=== PATIENT | male | born 1960 | race Caucasian/White ===

== ENCOUNTER 2020-08-01 15:34 | Observation (INO) ==
[2020-08-01 15:38] VITALS: BMI 32.8
[2020-08-01] MEDS ORDERED: ZOFRAN INJ 4 MG VIAL IVP ONE (16:25)
[2020-08-01] MEDS ORDERED: NS 1000 ML 1,000 ML IV ONE (16:25)
[2020-08-01] MEDS ORDERED: NS 1000 ML 1,000 ML ONE ×2 (16:30→19:46)
[2020-08-01] MEDS ORDERED: ZOFRAN INJ 4 MG VIAL ONE ×2 (16:30→16:31)
--- NOTE | 2020-08-01 16:30 | DR.N/VMALE ---
HPI Time Seen Time Seen by Provider: 08/01/20 16:25 Primary Care Physician Primary Care Physician: HEATHER Complaints Chief Complaint Doctors Comments: n/v since yesterday Chief Complaint:: PT C/O VOMITING, FEVER, HEADACHE, COUGH, AND FATIGUE/ WEAKNESS. PT STATES HE REC'D THE COVID VACCINE SATURDAY AFTERNOON AND HE BEGAN SYMPTOMS SATURDAY NIGHT. COVID-19 Coronavirus risk:travel/contact w/high risk person: No Has patient experienced Coronavirus symptoms: Yes Coronavirus symptoms experienced: Fever and Coughing Reviewed Nurses Notes Reviewed: Yes Source History Provided: Patient Mode of Arrival Mode of Arrival: Ambulatory Timing Onset of Chief Complaint: 07/30/20 PMH PMH Past Medical History: No Past Surgical History: Yes Past Surgical History Comment: RHINOPLASTY Family History History of Family Medical Conditions: No Social History Does any household member use tobacco: No Alcohol Use: None Do you use any recreational Drugs:: No Lives With: Family Lives Where: Home Travel Risk Coronavirus risk:travel/contact w/high risk person: No Has patient experienced Coronavirus symptoms: Yes Coronavirus symptoms experienced: Fever and Coughing Infectious screening In the last 2 months have you had wt loss of >10#?: NO Have you had fever, night sweats or hemotysis?: No Have you traveled outside the country in the last 6 months?: No Isolation: Droplet ROS Review of Systems Constitutional: See HPI Eyes: No Symptoms Reported ENTM: No Symptoms Reported Respiratoy: No Symptoms Reported Cardiovascular: No Symptoms Reported Gastrointestinal/Abdominal: No Symptoms Reported Genitourinary: No Symptoms Reported Neurological: No Symptoms Reported Musculoskeletal: No Symptoms Reported Integumentary: No Symptoms Reported PE Vital Signs Vitals: Temperature 99.5 F Pulse Rate 95 Respiratory Rate 20 Blood Pressure 135/65 O2 Sat by Pulse Oximetry 92 General General Appearance: Alert and In No Apparent Distress Head Head Exam: Normal Inspection, Atraumatic and Normocephalic Eyes Eye exam: Normal Appearance, PERRL and EOMI ENT ENT Exam: Normal Exam and Normal Oropharynx Neck Neck Exam: Normal Inspection and Full ROM Respiratory Respiratory Exam: Normal Lung Sounds Bilat; negative Accessory Muscle Use Cardiovascular Cardiovascular Exam: Regular Rate and Normal Heart Sounds Abdominal Exam Abdominal Exam: Normal Inspection and Normal Bowel Sounds Extremities Extremities Exam: Normal Inspection and Full ROM Back Back Exam: Normal Inspection, Full ROM and Tenderness Neurologic Neurological Exam: Alert, Oriented X3 and Reflexes Normal Skin Skin Exam: Warm, Dry and Intact COURSE Reevaluation 1st: Improved ROR Labs Reviewed Laboratory Results Reviewed?: Yes Result Diagrams: 08/01/20 16:36 08/01/20 16:36 Laboratory: WBC 5.0 X10^3/uL (3.6-10.0) 08/01/20 16:36 RBC 4.94 X10^6/uL (4.7-6.0) 08/01/20 16:36 Hgb 15.3 g/dL (13.5-18.0) 08/01/20 16:36 Hct 44.1 % (42.0-54.0) 08/01/20 16:36 MCV 89.3 fL (80.0-100.0) 08/01/20 16:36 MCH 31.0 pg (27.0-34.0) 08/01/20 16:36 MCHC 34.7 g/dL (33.0-35.0) 08/01/20 16:36 RDW 12.8 % (11.6-16.5) 08/01/20 16:36 Plt Count 148 X10^3/uL (150.0-450.0) L 08/01/20 16:36 MPV 8.1 fL (7.4-11.0) 08/01/20 16:36 Neut % (Auto) 78.3 % (42.0-75.0) H 08/01/20 16:36 Lymph % (Auto) 12.9 % (21.0-51.0) L 08/01/20 16:36 [place] % (Auto) 8.4 % (0.0-13.0) 08/01/20 16:36 Eos % (Auto) 0.1 % (0.9-2.9) L 08/01/20 16:36 Baso % (Auto) 0.3 % (0.2-1.0) 08/01/20 16:36 Neut # (Auto) 3.9 x10^3/uL (2.2-4.8) 08/01/20 16:36 Lymph # (Auto) 0.6 X10^3/uL (1.3-2.9) L 08/01/20 16:36 [place] # (Auto) 0.4 x10^3/uL (0.3-0.8) 08/01/20 16:36 Eos # (Auto) 0.0 x10^3/uL (0.0-0.2) 08/01/20 16:36 Baso # (Auto) 0.0 X10^3/uL (0.0-0.1) 08/01/20 16:36 Absolute Nucleated RBC 0.1 /100WBC 08/01/20 16:36 Sodium 139 mmol/L (136-145) 08/01/20 16:36 Corrected Sodium 139 mmol/L (136-145) 08/01/20 16:36 Potassium 4.3 mmol/L (3.5-5.1) 08/01/20 16:36 Chloride 102 mmol/L (98-107) 08/01/20 16:36 Carbon Dioxide 28.0 mmol/L (21-32) 08/01/20 16:36 BUN 24 mg/dL (7-18) H 08/01/20 16:36 Creatinine 1.05 mg/dL (0.70-1.30) 08/01/20 16:36 Est GFR (MDRD) Af Amer > 60 (>60) 08/01/20 16:36 Est GFR (MDRD) Non-Af > 60 (>60) 08/01/20 16:36 Glucose 112 mg/dL (65-99) H 08/01/20 16:36 Calcium 9.6 mg/dL (8.5-10.1) 08/01/20 16:36 Corrected Calcium TNP 08/01/20 16:36 Total Bilirubin 0.50 mg/dL (0.2-1.0) 08/01/20 16:36 AST 35 Units/L (15-37) 08/01/20 16:36 ALT 47 Units/L (12-78) 08/01/20 16:36 Alkaline Phosphatase 44 Units/L (46-116) L 08/01/20 16:36 Total Protein 7.9 g/dL (6.4-8.2) 08/01/20 16:36 Albumin 3.8 g/dL (3.4-5.0) 08/01/20 16:36 Globulin 4.1 g/dL (2.5-4.5) 08/01/20 16:36 Albumin/Globulin Ratio 0.9 Ratio (1.1-2.1) L 08/01/20 16:36 Lipase 600 Units/L (73-393) H 08/01/20 16:36 lipase 600 XRAY X-ray Results: ct abd neg for acute Opioid Opioid Risk Tool Age (Adrian box if 16-45): No History of Preadolescent Sexual Abuse: No Total: 0 Total Score Risk Category: Low Risk Copyright: Chuy RAMIREZ predicting aberrant behaviors Diagnosis Discharge Problem: Nausea and vomiting in adult patient, Acute pancreatitis
[2020-08-01 16:44] LABS: BASOPHILS % (AUTO) 0.3 % (0.2-1.0); EOSINOPHILS % (AUTO) 0.1 % (0.9-2.9); HEMATOCRIT 44.1 % (42.0-54.0); HEMOGLOBIN 15.3 g/dL (13.5-18.0); LYMPHOCYTES # (AUTO) 0.6 X10^3/uL (1.3-2.9); LYMPHOCYTES % (AUTO) 12.9 % (21.0-51.0); MEAN CORPUSCULAR HGB CONC 34.7 g/dL (33.0-35.0); MEAN CORPUSCULAR VOLUME 89.3 fL (80.0-100.0); MEAN PLATELET VOLUME 8.1 fL (7.4-11.0); MONOCYTES # (AUTO) 0.4 x10^3/uL (0.3-0.8); MONOCYTES % (AUTO) 8.4 % (0.0-13.0); NEUTROPHILS # (AUTO) 3.9 x10^3/uL (2.2-4.8); NEUTROPHILS % (AUTO) 78.3 % (42.0-75.0); PLATELET COUNT 148 X10^3/uL (150.0-450.0); RED BLOOD COUNT 4.94 X10^6/uL (4.7-6.0); RED CELL DISTRIBUTION WIDTH 12.8 % (11.6-16.5)
[2020-08-01 16:55] LABS: ALANINE AMINOTRANSFERASE 47 Units/L (12-78); ALBUMIN 3.8 g/dL (3.4-5.0); ALKALINE PHOSPHATASE 44 Units/L (46-116); ASPARTATE AMINO TRANSFERASE 35 Units/L (15-37); BLOOD UREA NITROGEN 24 mg/dL (7-18); CALCIUM 9.6 mg/dL (8.5-10.1); CHLORIDE 102 mmol/L (98-107); COR NA(FOR HYPERGLY) 139 mmol/L (136-145); CREATININE 1.05 mg/dL (0.70-1.30); LIPASE 600 Units/L (73-393); SODIUM 139 mmol/L (136-145); TOTAL PROTEIN 7.9 g/dL (6.4-8.2); eGFR NON BLACK RACES > 60 (>60)
--- NOTE | 2020-08-01 17:33 | RAD ---
ACUTE ABDOMEN SERIESHISTORY:C/O VOMITING, FEVER, HEADACHE, COUGH, AND FATIGUE/ WEAKNESS. PT STATES HE REC'D THE COVID VACCINE Saturday AND HE BEGAN SYMPTOMS Saturdaytudy: Frontal view of the chest, flat and upright views of the abdomenComparison:NoneFindings:Cardiomediastinal silhouette is normal in size .No focal consolidations, pleural effusions or pneumothorax.Flat and upright views of the abdomen demonstrates a normal bowel gas pattern.No free air..No abnormal calcifications or abnormal soft tissue shadows. No acute bony abnormalities.IMPRESSION:1. No acute cardiopulmonary disease.2. No evidence for acute abdominal pathology.Electronically signed by: VANIA LI (August 01, 2020 17:31:49)
[2020-08-01] MEDS ORDERED: LEVSIN/MAALOX/LIDOC VISC PO ONE (19:10)
[2020-08-01] MEDS ORDERED: LEVSIN/MAALOX/LIDOC VISC ONE (19:11)
--- NOTE | 2020-08-01 19:11 | CT ---
EXAM: CT ABDOMEN AND PELVIS WITHOUT INTRAVENOUS CONTRASTHISTORY: Pain. Vomiting. Fever. Headache. Cough. Fatigue. Weakness. Status post Kolephrin vaccine Saturday afternoon. Symptoms began Saturday night.TECHNIQUE: Spiral axial CT images are obtained through the abdomen and pelvis without the administration of intravenous contrast. Additional coronal and sagittal reformatted images are reconstructed.DOSIMETRY: Total DLP 921.9 mGycm; CTDI 17.8 mGyCOMPARISON: None available.FINDINGS:GASTROINTESTINAL TRACT: There is a small collapsed hiatal hernia. There is no evidence for bowel herniation, bowel obstruction, colitis or diverticulitis. A normal-appearing appendix is seen.GENITOURINARY SYSTEM: There are multiple tiny bilateral nonobstructing renal calculi; largest in the right lower pole kidney measuring 5.2 mm. The kidneys are unremarkable. There is no ureteral calculus or stigmata of obstructive uropathy. A urachal remnant is noted. The urinary bladder, seminal vesicles, prostate gland appear otherwise grossly unremarkable for a non-dedicated exam.CT ABDOMEN: The liver, spleen, pancreas, adrenal glands, gallbladder, aorta, and inferior vena cava are within normal limits for a noncontrast CT scan. There is no intra-abdominal or retroperitoneal lymphadenopathy, free fluid, or free air seen. Approximately 3.8 cm AP by 2.8 cm CC by 4.4 cm transverse umbilical hernia containing uncomplicated omental fat.CT PELVIS: Multilevel DDD is seen in the distal thoracic and upper lumbar spine. The visualized bony structures are otherwise within normal limits. No pelvic sidewall or inguinal lymphadenopathy is seen. No inguinal herniation is noted. No free fluid or free air is seen.LUNG BASES: The lung bases are clear.IMPRESSION:1. No gross acute abnormality or significant interval change seen.2. Multiple tiny bilateral nonobstructing renal calculi; largest in the right lower pole kidney measuring 5.2 mm; no evidence for ureteral stone or obstructive uropathy seen bilaterally.3. No evidence for acute appendicitis, bowel herniation/obstruction, colitis or diverticulitis seen.4. Small collapsed hiatal hernia.5. Approximately 3.8 cm AP by 2.8 cm CC by 4.4 cm transverse umbilical hernia containing uncomplicated omental fat.6. No free fluid, free air, mass lesions, or lymphadenopathy seen.Electronically signed by: Brenda Juarez (August 01, 2020 19:08:53)
[2020-08-01] MEDS ORDERED: MORPHINE SULFATE INJ 4 MG IVP PRN (19:37)
[2020-08-01] MEDS: NS 1000 ML 1,000 ML IV SCH (19:49)
[2020-08-01] MEDS ORDERED: ZOFRAN INJ 4 MG VIAL IVP PRN (22:26)
[2020-08-01] MEDS ORDERED: PEPCID 20 MG IV PREMIX* 20 MG/50 ML BAG IV ONE (22:38)
[2020-08-01] MEDS: PEPCID 20 MG IV PREMIX* 20 MG/50 ML BAG IV SCH (22:44)
[2020-08-02] MEDS: NS 1000 ML 1,000 ML IV SCH ×2 (04:51→11:44)
[2020-08-02 06:02] LABS: BASOPHILS % (AUTO) 0.4 % (0.2-1.0); EOSINOPHILS # (AUTO) 0.1 x10^3/uL (0.0-0.2); EOSINOPHILS % (AUTO) 1.1 % (0.9-2.9); HEMATOCRIT 38.6 % (42.0-54.0); HEMOGLOBIN 13.3 g/dL (13.5-18.0); LYMPHOCYTES # (AUTO) 1.5 X10^3/uL (1.3-2.9); LYMPHOCYTES % (AUTO) 26.9 % (21.0-51.0); MEAN CORPUSCULAR HEMOGLOBIN 30.7 pg (27.0-34.0); MEAN CORPUSCULAR HGB CONC 34.4 g/dL (33.0-35.0); MEAN CORPUSCULAR VOLUME 89.3 fL (80.0-100.0); MEAN PLATELET VOLUME 8.2 fL (7.4-11.0); MONOCYTES # (AUTO) 0.7 x10^3/uL (0.3-0.8); MONOCYTES % (AUTO) 12.7 % (0.0-13.0); NEUTROPHILS # (AUTO) 3.4 x10^3/uL (2.2-4.8); NEUTROPHILS % (AUTO) 58.9 % (42.0-75.0); PLATELET COUNT 124 X10^3/uL (150.0-450.0); RED BLOOD COUNT 4.32 X10^6/uL (4.7-6.0); WHITE BLOOD COUNT 5.7 X10^3/uL (3.6-10.0)
[2020-08-02 06:24] LABS: ALANINE AMINOTRANSFERASE 38 Units/L (12-78); ALBUMIN 2.9 g/dL (3.4-5.0); ALKALINE PHOSPHATASE 32 Units/L (46-116); AMYLASE 46 Units/L (25-115); ASPARTATE AMINO TRANSFERASE 29 Units/L (15-37); BLOOD UREA NITROGEN 23 mg/dL (7-18); CALCIUM 7.9 mg/dL (8.5-10.1); CHLORIDE 107 mmol/L (98-107); COR CA(FOR HYPOALB) 8.8 mg/dL (8.5-10.1); CREATININE 0.94 mg/dL (0.70-1.30); LIPASE 175 Units/L (73-393); SODIUM 141 mmol/L (136-145); TOTAL PROTEIN 6.2 g/dL (6.4-8.2); eGFR NON BLACK RACES > 60 (>60)
[2020-08-02] MEDS: PEPCID 20 MG IV PREMIX* 20 MG/50 ML BAG IV SCH (08:38)
--- NOTE | 2020-08-02 09:22 | DR.H&P ---
H&P - History & Physical for Day of: H&P Date: 08/01/20 - Chief Complaint Chief Complaint: ABDOMINAL TENDERNESS, NAUSEA, VOMITING, FEVER, HEADACHE, COUGH, FATIGUE - History of Present Illness History of Present Illness: IS A 60 YEAR OLD PATIENT OF OURS. HE PRESENTED TO THE ER WITH COMPLAINTS OF NAUSEA, VOMITING, FEVER, HEADACHE, COUGH, FATIGUE AND WEAKNESS. HE REPORTS THAT HIS SYMPTOMS STARTED SATURDAY EVENING, AFTER RECEIVING THE COVID VACCINE. HE REPORTS THAT HIS SYMPTOMS HAVE WORSENED SINCE SATURDAY. EXAMINATION REVEALED INCREASED BOWEL SOUNDS AND DIFFUSE ABDOMINAL TENDERNESS. ON ARRIVAL TO THE ER, VITALS WERE 99.5-95-20-92%-135/65. LABS WERE OBTAINED. ABNORMAL LAB VALUES INCLUDE THE FOLLOWING: PLT COUNT 148, BUN 24, GLUCOSE 112, ALK PHOS 44, LIPASE 600. COVID-19 NEGATIVE. AN ABDOMEN XRAY WAS OBTAINED AND REVEALED: 1. No acute cardiopulmonary disease. 2. No evidence for acute abdominal pathology. AN ABDOMEN/PELVIS CT WITHOUT CONTRAST WAS OBTAINED AND REVEALED: 1. No gross acute abnormality or significant interval change seen. 2. Multiple tiny bilateral nonobstructing renal calculi; largest in the right lower pole kidney measuring 5.2 mm; no evidence for ureteral stone or obstructive uropathy seen bilaterally. 3. No evidence for acute appendicitis, bowel herniation/obstruction, colitis or diverticulitis seen. 4. Small collapsed hiatal hernia. 5. Approximately 3.8 cm AP by 2.8 cm CC by 4.4 cm transverse u mbilical hernia containing uncomplicated omental fat. 6. No free fluid, free air, mass lesions, or lymphadenopathy seen. IN THE ER, HE WAS GIVEN A NORMAL SALINE BOLUS, ZOFRAN 8MG IV X 1 DOSE, GI COCKTAIL 30ML PO X 1 DOSE. HE WAS ADMITTED TO THE HOSPITAL FOR FURTHER EVALUATION AND TREATMENT OF ACUTE PANCREATITIS, ABDOMINAL PAIN, NAUSEA/VOMITING. HE WAS STARTED ON NORMAL SALINE AT 125 ML/HR, PEPCID 20MG IV DAILY, MORPHINE 4MG IV Q4H PRN PAIN, AND ZOFRAN 4MG IV Q8H PRN NAUSEA. HE WILL BE NPO. OTHERWISE, WE PLAN TO FOLLOW UP WITH AM LABS AND CONTINUE TO MONITOR. TIME SPENT ON CLINICAL ASSESSMENT, REVIEWING LABS AND IMAGING, DECISION MAKING, AND DOCUMENTATION GREATER THAN 75 MINUTES. - Past Surgical History Surgical History: Other Additional Surgical History: RHINOPLASTY - Family History Family Medical History: Cancer - Social History Does any household member use tobacco: No Alcohol Use: None Drug Use: None - Medications Home Medications: No Known Drug Allergies Allergy (Verified 08/01/20 15:35) CONTINUE taking the following medications NK 08/02/20 [History] - Review of Systems Constitutional: Fever, Chills, Weakness, Malaise Eyes: No Symptoms Reported ENT: No Symptoms Reported Respiratory: Cough Cardiovascular: No Symptoms Reported Gastrointestinal: See HPI, Nausea, Vomiting, Abdominal Pain Genitourinary: No Symptoms Reported Musculoskeletal: No Symptoms Reported Skin: No Symptoms Reported Neurological: Weakness - Physical Exam Vital Signs: Temperature 97.6 F Pulse Rate [Left] 58 Pulse Rate 95 Respiratory Rate 18 Blood Pressure [Left Arm] 126/70 Blood Pressure 135/65 O2 Sat by Pulse Oximetry 97 Oriented: Normal Eyes: Normal Ear: Normal Nose: Normal Throat: Normal Respiratory: Diminished Throughout Cardiovascular: Normal : Normal Auscultation: Bowel Sounds: Increased Palpation: Normal Tenderness: Diffuse, Mild Skin: Normal Musculoskeletal: Normal Psychiatric: Normal Mood Description: Calm Affect: Normal Speech Pattern: Clear - Assessment/Plan (1) Acute pancreatitis Qualifiers: Pancreatitis type: unspecified pancreatitis type Acute pancreatitis complication: no infection or necrosis Qualified Code(s): K85.90 - Acute pancreatitis without necrosis or infection, unspecified Status: Acute Plan: ADMIT, NPO, NORMAL SALINE AT 125 ML/HR, PEPCID 20MG IV DAILY, MORPHINE 4MG IV Q4H PRN PAIN, AND ZOFRAN 4MG IV Q8H PRN NAUSEA. (2) Abdominal pain Qualifiers: Abdominal location: generalized Qualified Code(s): R10.84 - Generalized abdominal pain Status: Acute (3) Nausea and vomiting in adult patient Status: Acute - Allergies Allergies/Adverse Reactions: Allergies Allergy/AdvReac Type Severity Reaction Status Date / Time No Known Drug Allergies Allergy Verified 08/01/20 15:35
[2020-08-02] MEDS ORDERED: LOVENOX INJ 40 MG SYR SC SCH (10:00)
[2020-08-02] MEDS: SOLU-Medrol 40 MG VIAL IVP SCH ×2 (10:30→16:52)
[2020-08-02 16:53] VITALS: BP 126/58
== END 2020-08-02 16:50 | disposition home or self-care (01) ==
LOC: MED/SURG 15:34 → ER 15:34 → MED/SURG 22:14
PROVIDERS: ADMIT Internal Medicine; ATTEND Internal Medicine
DX: K44.9 Diaphragmatic hernia without obstruction or gangrene; K85.80 Other acute pancreatitis without necrosis or infection; Z20.822 Contact with and (suspected) exposure to COVID-19; R53.83 Other fatigue; R11.2 Nausea with vomiting, unspecified; R10.84 Generalized abdominal pain; R51.9 Headache, unspecified

== ENCOUNTER 2023-09-17 01:18 | Observation (INO) ==
--- NOTE | 2023-09-17 02:21 | DR.ABDMALE ---
HPI Time seen Time Seen by Provider: 09/17/23 02:20 PCP Primary Care Physician: Dr. Marshall HPI comment HPI Comment: A 60 y/o male presenting with mayra-umbilical pain onset about 1900 hrs. The pain started after he sneezed. He states that it has been constant, he can't describe it but it hurts and he rated this as a 10/10. There is no nausea or vomiting. The pain onset is not related to a meal (he was discharged from the hospital 0n 08/02/2020 after a 23 hrs. observation stay with pancreatitis. Complaint Chief Complaint:: C/O Abd. Pain around Umbilus. Pt has a Hx of an Umbilical Hernia Self Treatment fo Chief Complaint: Came to ED because pain comes and goes at times COVID-19 Coronavirus risk:travel/contact w/high risk person: No Has patient experienced Coronavirus symptoms: No Reviewed Nurses Notes Review: Yes Mode of arrival Mode of Arrival: Ambulatory Timing Onset of Chief Complaint: 09/15/23 Location Location: Periumbilical Severity Severity: Severe PMH PMH Past Medical History: Yes Past Medical History Comment: DVT Past Surgical History: Yes Surgical History: Other Past Surgical History Comment: Nose Surgery Family History History of Family Medical Conditions: Yes Family Medical History: Cancer Social History Does patient currently use any type of tobacco product: No Have you used tobacco products in the last 12 months: No Type of Tobacco Use: None Does any household member use tobacco: No Alcohol Use: None Do you use any recreational Drugs:: No Lives With: Alone Lives Where: Home Infectious screening Have you traveled outside the country in the last 6 months?: No Isolation: Standard PE Vital Signs Vital Signs: Temp Pulse Resp BP Pulse Ox 09/17/23 01:40 98.0 F 73 19 120/66 95 ROR Labs Reviewed 09/18/23 05:20 09/18/23 05:20 Laboratory: WBC 10.7 X10^3/uL (3.6-10.0) H 09/17/23 02:35 RBC 5.65 X10^6/uL (4.7-6.0) 09/17/23 02:35 Hgb 16.8 g/dL (13.5-18.0) 09/17/23 02:35 Hct 51.0 % (42.0-54.0) 09/17/23 02:35 MCV 90.4 fL (80.0-100.0) 09/17/23 02:35 MCH 29.8 pg (27.0-34.0) 09/17/23 02:35 MCHC 33.0 g/dL (33.0-35.0) 09/17/23 02:35 RDW 13.5 % (11.6-16.5) 09/17/23 02:35 Plt Count 198 X10^3/uL (150.0-450.0) 09/17/23 02:35 MPV 8.5 fL (7.4-11.0) 09/17/23 02:35 Neut % (Auto) 80.6 % (42.0-75.0) H 09/17/23 02:35 Lymph % (Auto) 12.0 % (21.0-51.0) L 09/17/23 02:35 [place] % (Auto) 6.5 % (0.0-13.0) 09/17/23 02:35 Eos % (Auto) 0.3 % (0.9-2.9) L 09/17/23 02:35 Baso % (Auto) 0.6 % (0.2-1.0) 09/17/23 02:35 Neut # (Auto) 8.6 x10^3/uL (2.2-4.8) H 09/17/23 02:35 Lymph # (Auto) 1.3 X10^3/uL (1.3-2.9) 09/17/23 02:35 [place] # (Auto) 0.7 x10^3/uL (0.3-0.8) 09/17/23 02:35 Eos # (Auto) 0.0 x10^3/uL (0.0-0.2) 09/17/23 02:35 Baso # (Auto) 0.1 X10^3/uL (0.0-0.1) 09/17/23 02:35 Absolute Nucleated RBC 0.1 /100WBC 09/17/23 02:35 Sodium 142 mmol/L (136-145) 09/17/23 02:35 Corrected Sodium TNP 09/17/23 02:35 Potassium 4.2 mmol/L (3.5-5.1) 09/17/23 02:35 Chloride 100 mmol/L (98-107) 09/17/23 02:35 Carbon Dioxide 29.4 mmol/L (21-32) 09/17/23 02:35 BUN 12 mg/dL (7-18) 09/17/23 02:35 Creatinine 0.97 mg/dL (0.70-1.30) 09/17/23 02:35 Est GFR (MDRD) Af Amer > 60 (>60) 09/17/23 02:35 Est GFR (MDRD) Non-Af > 60 (>60) 09/17/23 02:35 Glucose 104 mg/dL (65-99) H 09/17/23 02:35 Calcium 9.8 mg/dL (8.5-10.1) 09/17/23 02:35 Corrected Calcium TNP 09/17/23 02:35 Total Bilirubin 0.70 mg/dL (0.2-1.0) 09/17/23 02:35 AST 27 Units/L (15-37) 09/17/23 02:35 ALT 22 Units/L (12-78) 09/17/23 02:35 Alkaline Phosphatase 49 Units/L (46-116) 09/17/23 02:35 Total Protein 7.8 g/dL (6.4-8.2) 09/17/23 02:35 Albumin 4.0 g/dL (3.4-5.0) 09/17/23 02:35 Globulin 3.8 g/dL (2.5-4.5) 09/17/23 02:35 Albumin/Globulin Ratio 1.1 Ratio (1.1-2.1) 09/17/23 02:35 Amylase 61 Units/L (25-115) 09/17/23 02:35 Lipase 49 Units/L (16-77) 09/17/23 02:35 Specimen Type Clean catch urine 09/17/23 05:52 Urine Color Yellow (YELLOW) 09/17/23 05:52 Urine Appearance Clear (CLEAR) 09/17/23 05:52 Urine pH 6.0 (5.0 - 8.0) 09/17/23 05:52 Ur Specific [place] 1.015 (1.000-1.030) 09/17/23 05:52 Urine Protein Negative (NEGATIVE) 09/17/23 05:52 Urine Glucose (UA) Negative (NEGATIVE) 09/17/23 05:52 Urine Ketones 4+ (NEGATIVE) 09/17/23 05:52 Urine Blood 3+ (NEGATIVE) 09/17/23 05:52 Urine Nitrite Negative (NEGATIVE) 09/17/23 05:52 Urine Bilirubin Negative (NEGATIVE) 09/17/23 05:52 Urine Urobilinogen Normal (NORMAL) 09/17/23 05:52 Ur Leukocyte Esterase Negative (NEGATIVE) 09/17/23 05:52 Urine RBC 0-2 /HPF (0-3) 09/17/23 05:52 Urine WBC None seen /HPF (0-5) 09/17/23 05:52 Ur Squamous Epith Cells Rare /HPF (NEGATIVE) 09/17/23 05:52 Urine Bacteria Negative /HPF (NEGATIVE) 09/17/23 05:52 Ur Culture Indicated? No/not indicated 09/17/23 05:52 Opioid Opioid Risk Tool Age (Adrian box if 16-45): No History of Preadolescent Sexual Abuse: No Total: 0 Total Score Risk Category: Low Risk Copyright: Chuy RAMIREZ predicting aberrant behaviors Discharge Plan Discharge Plan Patient Disposition: 09 ADMITTED INPATIENT Condition: Stable
[2023-09-17] MEDS: ZOFRAN INJ 4 MG VIAL IVP ONE (02:39)
[2023-09-17 02:48] LABS: BASOPHILS # (AUTO) 0.1 X10^3/uL (0.0-0.1); BASOPHILS % (AUTO) 0.6 % (0.2-1.0); EOSINOPHILS % (AUTO) 0.3 % (0.9-2.9); HEMOGLOBIN 16.8 g/dL (13.5-18.0); LYMPHOCYTES # (AUTO) 1.3 X10^3/uL (1.3-2.9); MEAN CORPUSCULAR HEMOGLOBIN 29.8 pg (27.0-34.0); MEAN CORPUSCULAR VOLUME 90.4 fL (80.0-100.0); MEAN PLATELET VOLUME 8.5 fL (7.4-11.0); MONOCYTES # (AUTO) 0.7 x10^3/uL (0.3-0.8); MONOCYTES % (AUTO) 6.5 % (0.0-13.0); NEUTROPHILS # (AUTO) 8.6 x10^3/uL (2.2-4.8); NEUTROPHILS % (AUTO) 80.6 % (42.0-75.0); PLATELET COUNT 198 X10^3/uL (150.0-450.0); RED BLOOD COUNT 5.65 X10^6/uL (4.7-6.0); RED CELL DISTRIBUTION WIDTH 13.5 % (11.6-16.5); WHITE BLOOD COUNT 10.7 X10^3/uL (3.6-10.0)
[2023-09-17 02:56] LABS: ALANINE AMINOTRANSFERASE 22 Units/L (12-78); ALKALINE PHOSPHATASE 49 Units/L (46-116); AMYLASE 61 Units/L (25-115); ASPARTATE AMINO TRANSFERASE 27 Units/L (15-37); BLOOD UREA NITROGEN 12 mg/dL (7-18); CALCIUM 9.8 mg/dL (8.5-10.1); CARBON DIOXIDE 29.4 mmol/L (21-32); CHLORIDE 100 mmol/L (98-107); CREATININE 0.97 mg/dL (0.70-1.30); GLUCOSE 104 mg/dL (65-99); LIPASE 49 Units/L (16-77); POTASSIUM 4.2 mmol/L (3.5-5.1); SODIUM 142 mmol/L (136-145); TOTAL PROTEIN 7.8 g/dL (6.4-8.2); eGFR NON BLACK RACES > 60 (>60)
--- NOTE | 2023-09-17 03:43 | CT ---
EXAM:CT ABDOMEN AND PELVIS WITH CONTRASTHISTORY:C/O Abd. Pain around Umbilus. Pt has a Hx of an Umbilical Hernia; DVTCOMPARISON:NoneTECHNIQUE:Axial images were acquired of the abdomen and pelvis with IV contrast. Sagittal and coronal reformatted images were provided. All images were reviewed in a variety of windows and levels.RADIATION REDUCTION TECHNIQUE: Automated exposure control, adjustment of the mA and/or kV according to patient size, or iterative reconstruction techniques were used.FINDINGS:LOWER THORAX: The visualized lower lung zones are clear. The heart size is within normal limits. There is no evidence of a pericardial effusion.LIVER: No intrahepatic focal lesions are seen. No evidence of intrahepatic or extrahepatic duct dilation.GALLBLADDER: The gallbladder is unremarkable.SPLEEN: The spleen enhances homogenously and is unremarkable.PANCREAS: The pancreas enhances homogenously and is unremarkable.ADRENAL GLANDS: The adrenal glands enhance homogenously and are unremarkable.: The kidneys enhance homogenously. Their collecting system is of normal caliber. Bilateral nephrolithiasis, nonobstructing.URINARY BLADDER: The urinary bladder is unremarkable. There are no soft tissue masses seen in the urinary bladder.VESSELS: The abdominal aorta is normal in size without evidence of aneurysm or dissection. The celiac artery, superior mesenteric artery, augustine renal arteries, and inferior mesenteric artery are patent.GI: Small hiatal hernia.. There are multiple moderately dilated fluid-filled loops of small bowel consistent with obstruction. There is a moderate-sized umbilical hernia containing a loop of small bowel resulting in the obstruction. There is no evidence of strangulation. Few scattered diverticula are seen without evidence of diverticulitis. There are no inflammatory changes seen in the right lower quadrant to suggest secondary signs of acute appendicitis. Normal appendix right lower quadrant.LYMPHNODES AND MESENTERY: There is no evidence of retroperitoneal lymphadenopathy. Prostate gland is mildly enlarged.BONES: The visualized bones demonstrate degenerative changes. There are no concerning lytic or blastic lesions identified.IMPRESSION:Small-bowel obstruction secondary to loop of small bowel within umbilical hernia.Small hiatal hernia.Bilateral nephrolithiasis, nonobstructing.THIS IS AN ELECTRONICALLY VERIFIED FINAL REPORT09/17/2023 3:39 AM - Electronically signed by Mack Batista MD
[2023-09-17 05:59] LABS: BILIRUBIN,URINE NEGATIVE (NEGATIVE); BLOOD/HEMOGLOBIN,URINE 3+ (NEGATIVE); GLUCOSE, URINE NEGATIVE (NEGATIVE); KETONES,URINE 4+ (NEGATIVE); LEUKOCYTE ESTERASE ,URINE NEGATIVE (NEGATIVE); NITRITES,URINE NEGATIVE (NEGATIVE); PROTEIN,URINE NEGATIVE (NEGATIVE); UROBILINOGEN,URINE NORMAL (NORMAL)
[2023-09-17] MEDS: ANCEF VIAL 1 GRAM IVP SCH (06:06)
[2023-09-17] MEDS: LR 1,000 ML IV 1,000 ML IV SCH (06:06)
[2023-09-17 07:07] LABS: APPEARANCE,URINE CLEAR (CLEAR); COLOR,URINE YELLOW (YELLOW); RBC,URINE 0-2 /HPF (0-3)
[2023-09-17 07:08] LABS: BACTERIA,URINE NEGATIVE /HPF (NEGATIVE); SQUAMOUS EPITHELIAL CELL,UR RARE /HPF (NEGATIVE)
[2023-09-17] MEDS: ZOFRAN INJ 4 MG VIAL IVP PRN (07:50)
[2023-09-17] MEDS: DEMEROL INJ IVP PRN (07:51)
[2023-09-17 09:05] VITALS: BMI 29.2
[2023-09-18] MEDS: HIBICLENS WASH EXT ONE (04:03)
[2023-09-18 06:42] LABS: BASOPHILS % (AUTO) 0.5 % (0.2-1.0); EOSINOPHILS # (AUTO) 0.1 x10^3/uL (0.0-0.2); EOSINOPHILS % (AUTO) 1.5 % (0.9-2.9); HEMATOCRIT 45.8 % (42.0-54.0); HEMOGLOBIN 15.1 g/dL (13.5-18.0); LYMPHOCYTES # (AUTO) 1.9 X10^3/uL (1.3-2.9); LYMPHOCYTES % (AUTO) 21.8 % (21.0-51.0); MEAN CORPUSCULAR HEMOGLOBIN 29.9 pg (27.0-34.0); MEAN CORPUSCULAR HGB CONC 32.9 g/dL (33.0-35.0); MEAN CORPUSCULAR VOLUME 90.8 fL (80.0-100.0); MEAN PLATELET VOLUME 9.1 fL (7.4-11.0); MONOCYTES # (AUTO) 0.8 x10^3/uL (0.3-0.8); MONOCYTES % (AUTO) 9.5 % (0.0-13.0); NEUTROPHILS # (AUTO) 5.7 x10^3/uL (2.2-4.8); NEUTROPHILS % (AUTO) 66.7 % (42.0-75.0); PLATELET COUNT 183 X10^3/uL (150.0-450.0); RED BLOOD COUNT 5.05 X10^6/uL (4.7-6.0); RED CELL DISTRIBUTION WIDTH 13.1 % (11.6-16.5); WHITE BLOOD COUNT 8.5 X10^3/uL (3.6-10.0)
[2023-09-18 06:51] LABS: ALANINE AMINOTRANSFERASE 13 Units/L (12-78); ALBUMIN 3.2 g/dL (3.4-5.0); ALKALINE PHOSPHATASE 39 Units/L (46-116); ASPARTATE AMINO TRANSFERASE 19 Units/L (15-37); BLOOD UREA NITROGEN 12 mg/dL (7-18); CALCIUM 8.9 mg/dL (8.5-10.1); CARBON DIOXIDE 31.5 mmol/L (21-32); CHLORIDE 103 mmol/L (98-107); COR CA(FOR HYPOALB) 9.5 mg/dL (8.5-10.1); CREATININE 0.95 mg/dL (0.70-1.30); GLUCOSE 100 mg/dL (65-99); POTASSIUM 3.7 mmol/L (3.5-5.1); SODIUM 140 mmol/L (136-145); TOTAL PROTEIN 6.6 g/dL (6.4-8.2); eGFR NON BLACK RACES > 60 (>60)
[2023-09-18] MEDS ORDERED: CONSULT PHARMACY - POTASSIUM & MAGNESIUM XX SCH ×2 (08:00)
[2023-09-18] MEDS: K-DUR TAB 20 MEQ PO SCH (08:08)
[2023-09-18] MEDS: MAGNESIUM SULFATE 1 GRAM/100 mL PREMIX 1 G/100 ML BAG IV SCH (08:39)
--- NOTE | 2023-09-18 08:56 | EKG ---
Test Reason : preoperative patient Blood Pressure : */* mmHG Vent. Rate : 60 BPM Atrial Rate : 60 BPM P-R Int : 146 ms QRS Dur : 72 ms QT Int : 366 ms P-R-T Axes : 34 -13 65 degrees QTc Int : 366 ms Normal sinus rhythm Normal ECG No previous ECGs available Confirmed by Ivan Ding MD ([id number]) on 09/19/2023 5:51:00 AM Referred By: Confirmed By: Ivan Ding MD
--- NOTE | 2023-09-18 09:14 | RAD ---
EXAM: One-view chest HISTORY: Preop hernia repair COMPARISON: None FINDINGS: Heart size is normal. Janine are normal. Lungs mildly hypoinflated but free of acute infiltrates. Bony thorax is unremarkable. IMPRESSION: Lungs are mildly hypoinflated but clear THIS IS AN ELECTRONICALLY VERIFIED FINAL REPORT 09/18/2023 9:11 AM - Electronically signed by Cristobal Lainez MD
[2023-09-18] MEDS: LR 1,000 ML IV 1,000 ML IV ONE (10:26)
[2023-09-18] MEDS: ANCEF VIAL 1 GRAM ONE ×2 (10:50→11:11)
[2023-09-18] MEDS: NS 100 ML IV 100 ML ONE ×2 (10:50→11:11)
[2023-09-18] MEDS: VERSED ONE (11:02)
[2023-09-18] MEDS: FENTANYL VIAL INJ 100 mcg ONE (11:02)
[2023-09-18] MEDS: ZEMURON 100 MG VIAL ONE (11:05)
[2023-09-18] MEDS: DIPRIVAN VIAL 20 ML ONE (11:05)
[2023-09-18] MEDS ORDERED: SUPRANE ONE (11:07)
[2023-09-18] MEDS ORDERED: PRECEDEX INJ VIAL ONE (11:07)
[2023-09-18] MEDS: POLYMYXIN B SULFATE ONE (11:20)
[2023-09-18] MEDS: BRIDION ONE (11:44)
[2023-09-18] MEDS: OFIRMEV IV 1000 MG VIAL 1,000 MG/100 ML VIAL IV ONE (11:51)
[2023-09-18] MEDS: TORADOL 30 MG VIAL ONE (11:51)
[2023-09-18] MEDS ORDERED: REGLAN INJ 10 MG VIAL IVP PRN (12:04)
[2023-09-18] MEDS ORDERED: BARHEMSYS INJ IVP PRN (12:04)
[2023-09-18] MEDS ORDERED: ZOFRAN INJ 4 MG VIAL IVP PRN (12:04)
[2023-09-18] MEDS ORDERED: DILAUDID INJ IVP PRN (12:04)
[2023-09-18] MEDS ORDERED: BENADRYL INJ 50 MG VIAL IVP PRN (12:04)
[2023-09-18] MEDS: MARCAINE/EPINEPHRINE ONE (12:19)
[2023-09-18] MEDS: BACTROBAN TOPICAL OINT ONE (12:34)
[2023-09-18] MEDS: DILAUDID INJ IVP PRN (14:08)
[2023-09-18] MEDS: ANCEF VIAL 1 GRAM 1 G in NS 100 ML IV 100 ML IV SCH (14:11)
[2023-09-18] MEDS: D5 1/2 NS 1,000 ML 1,000 ML IV SCH (14:11)
[2023-09-18] MEDS: K-RIDER 10 MEQ/100 ML WATER 10 MEQ/100 ML BAG IV SCH (15:30)
[2023-09-18] MEDS: K-DUR TAB 20 MEQ PO ONE (15:32)
[2023-09-19 04:29] VITALS: O2SAT 95
[2023-09-19 06:33] LABS: BASOPHILS % (AUTO) 0.3 % (0.2-1.0); EOSINOPHILS # (AUTO) 0.1 x10^3/uL (0.0-0.2); EOSINOPHILS % (AUTO) 1.3 % (0.9-2.9); HEMATOCRIT 39.9 % (42.0-54.0); HEMOGLOBIN 13.2 g/dL (13.5-18.0); LYMPHOCYTES # (AUTO) 1.7 X10^3/uL (1.3-2.9); LYMPHOCYTES % (AUTO) 18.8 % (21.0-51.0); MEAN CORPUSCULAR HEMOGLOBIN 30.1 pg (27.0-34.0); MEAN CORPUSCULAR VOLUME 91.3 fL (80.0-100.0); MEAN PLATELET VOLUME 9.3 fL (7.4-11.0); MONOCYTES % (AUTO) 11.4 % (0.0-13.0); NEUTROPHILS % (AUTO) 68.2 % (42.0-75.0); PLATELET COUNT 167 X10^3/uL (150.0-450.0); RED BLOOD COUNT 4.37 X10^6/uL (4.7-6.0); RED CELL DISTRIBUTION WIDTH 12.8 % (11.6-16.5); WHITE BLOOD COUNT 8.8 X10^3/uL (3.6-10.0)
[2023-09-19 06:40] LABS: ALANINE AMINOTRANSFERASE 12 Units/L (12-78); ALBUMIN 2.7 g/dL (3.4-5.0); ALKALINE PHOSPHATASE 30 Units/L (46-116); ASPARTATE AMINO TRANSFERASE 14 Units/L (15-37); BLOOD UREA NITROGEN 9 mg/dL (7-18); CARBON DIOXIDE 32.9 mmol/L (21-32); CHLORIDE 104 mmol/L (98-107); COR NA(FOR HYPERGLY) 141 mmol/L (136-145); GLUCOSE 136 mg/dL (65-99); SODIUM 140 mmol/L (136-145); TOTAL PROTEIN 5.8 g/dL (6.4-8.2); eGFR NON BLACK RACES > 60 (>60)
--- NOTE | 2023-09-19 09:27 | DR.PROGNOT ---
HOSPITAL PROGRESS NOTE Progress Note for Day of: Progress Note Date: 09/19/23 Chief Complaint Chief Complaint: doing fairly well .. no nausea or vomiting , tolerating diet well . passing flatus , no BM yet .. WBC 8.8.. afebrile .. Past Medical Family Social History Allergies: Allergies No Known Drug Allergies Allergy (Verified 09/03/23 10:19) Vital Signs Vital Signs: Vital Signs Temperature 97.9 F Pulse Rate [Left] 60 Respiratory Rate 19 Respiratory Rate 21 Respiratory Rate 21 Blood Pressure [Right Arm] 101/60 O2 Sat by Pulse Oximetry 95 Physical Exam Oriented: Normal Eyes: Normal Ear: Normal Throat: Normal Respiratory: Normal Cardiovascular: Normal GI:Auscultation: Normal GI:Palpation: Other (incisional tenderness , BS+) Mood Description: Calm Speech Pattern: Clear and Appropriate Laboratory and Diagnostics 09/19/23 05:10 09/19/23 05:10 Labs: Laboratory WBC 8.8 X10^3/uL (3.6-10.0) 09/19/23 05:10 RBC 4.37 X10^6/uL (4.7-6.0) L 09/19/23 05:10 Hgb 13.2 g/dL (13.5-18.0) L 09/19/23 05:10 Hct 39.9 % (42.0-54.0) L 09/19/23 05:10 MCV 91.3 fL (80.0-100.0) 09/19/23 05:10 MCH 30.1 pg (27.0-34.0) 09/19/23 05:10 MCHC 33.0 g/dL (33.0-35.0) 09/19/23 05:10 RDW 12.8 % (11.6-16.5) 09/19/23 05:10 Plt Count 167 X10^3/uL (150.0-450.0) 09/19/23 05:10 MPV 9.3 fL (7.4-11.0) 09/19/23 05:10 Neut % (Auto) 68.2 % (42.0-75.0) 09/19/23 05:10 Lymph % (Auto) 18.8 % (21.0-51.0) L 09/19/23 05:10 [place] % (Auto) 11.4 % (0.0-13.0) 09/19/23 05:10 Eos % (Auto) 1.3 % (0.9-2.9) 09/19/23 05:10 Baso % (Auto) 0.3 % (0.2-1.0) 09/19/23 05:10 Neut # (Auto) 6.0 x10^3/uL (2.2-4.8) H 09/19/23 05:10 Lymph # (Auto) 1.7 X10^3/uL (1.3-2.9) 09/19/23 05:10 [place] # (Auto) 1.0 x10^3/uL (0.3-0.8) H 09/19/23 05:10 Eos # (Auto) 0.1 x10^3/uL (0.0-0.2) 09/19/23 05:10 Baso # (Auto) 0.0 X10^3/uL (0.0-0.1) 09/19/23 05:10 Absolute Nucleated RBC 0.0 /100WBC 09/19/23 05:10 Sodium 140 mmol/L (136-145) 09/19/23 05:10 Corrected Sodium 141 mmol/L (136-145) 09/19/23 05:10 Potassium 4.0 mmol/L (3.5-5.1) 09/19/23 05:10 Chloride 104 mmol/L (98-107) 09/19/23 05:10 Carbon Dioxide 32.9 mmol/L (21-32) H 09/19/23 05:10 BUN 9 mg/dL (7-18) 09/19/23 05:10 Creatinine 0.90 mg/dL (0.70-1.30) 09/19/23 05:10 Est GFR (MDRD) Af Amer > 60 (>60) 09/19/23 05:10 Est GFR (MDRD) Non-Af > 60 (>60) 09/19/23 05:10 Glucose 136 mg/dL (65-99) H 09/19/23 05:10 Calcium 8.0 mg/dL (8.5-10.1) L 09/19/23 05:10 Corrected Calcium 9.0 mg/dL (8.5-10.1) 09/19/23 05:10 Magnesium 2.0 mg/dL (2.0-2.9) 09/19/23 05:10 Total Bilirubin 0.20 mg/dL (0.2-1.0) 09/19/23 05:10 AST 14 Units/L (15-37) L 09/19/23 05:10 ALT 12 Units/L (12-78) 09/19/23 05:10 Alkaline Phosphatase 30 Units/L (46-116) L 09/19/23 05:10 Total Protein 5.8 g/dL (6.4-8.2) L 09/19/23 05:10 Albumin 2.7 g/dL (3.4-5.0) L 09/19/23 05:10 Globulin 3.1 g/dL (2.5-4.5) 09/19/23 05:10 Albumin/Globulin Ratio 0.9 Ratio (1.1-2.1) L 09/19/23 05:10 Amylase 61 Units/L (25-115) 09/17/23 02:35 Lipase 49 Units/L (16-77) 09/17/23 02:35 Specimen Type Clean catch urine 09/17/23 05:52 Urine Color Yellow (YELLOW) 09/17/23 05:52 Urine Appearance Clear (CLEAR) 09/17/23 05:52 Urine pH 6.0 (5.0 - 8.0) 09/17/23 05:52 Ur Specific [place] 1.015 (1.000-1.030) 09/17/23 05:52 Urine Protein Negative (NEGATIVE) 09/17/23 05:52 Urine Glucose (UA) Negative (NEGATIVE) 09/17/23 05:52 Urine Ketones 4+ (NEGATIVE) 09/17/23 05:52 Urine Blood 3+ (NEGATIVE) 09/17/23 05:52 Urine Nitrite Negative (NEGATIVE) 09/17/23 05:52 Urine Bilirubin Negative (NEGATIVE) 09/17/23 05:52 Urine Urobilinogen Normal (NORMAL) 09/17/23 05:52 Ur Leukocyte Esterase Negative (NEGATIVE) 09/17/23 05:52 Urine RBC 0-2 /HPF (0-3) 09/17/23 05:52 Urine WBC None seen /HPF (0-5) 09/17/23 05:52 Ur Squamous Epith Cells Rare /HPF (NEGATIVE) 09/17/23 05:52 Urine Bacteria Negative /HPF (NEGATIVE) 09/17/23 05:52 Ur Culture Indicated? No/not indicated 09/17/23 05:52 Assessment and Plan 1: s/p laparotomy , release SBO and repair of incarcerated umbilical hernia . to advance diet , f/u in 10 days .
[2023-09-19 10:58] VITALS: BP 121/60; PULSE 61; RESP 20; TEMP 98.1
== END 2023-09-19 11:30 | disposition home or self-care (01) ==
LOC: ER 01:38 → MED/SURG 01:38
PROVIDERS: ADMIT Internal Medicine; ATTEND Obstetrics & Gynecology Obstetrics
DX: K56.690 Other partial intestinal obstruction; R10.84 Generalized abdominal pain; K42.9 Umbilical hernia without obstruction or gangrene; N20.0 Calculus of kidney; Z01.810 Encounter for preprocedural cardiovascular examination; K44.9 Diaphragmatic hernia without obstruction or gangrene